=== PATIENT | female | born 1980 | race Caucasian/White ===

== ENCOUNTER 2017-11-01 12:38 | Inpatient (IN) ==
--- NOTE | 2017-11-01 13:40 | ED ---
HPI General Chief complaint: Dental/Oral Stated complaint: Medical Time Seen by Provider: 11/01/17 13:32 History of Present Illness HPI narrative: Patient is a 37-year-old otherwise healthy female presents emergency department as a transfer accepted by Dr. Harrington of the [facility] service evaluation of a dental abscess. Patient initially presented to [facility], has 2 day history of facial swelling on the right side of her face. Has tracked inferiorly underneath the jaw. She was given clindamycin prior to transfer, she did have temperature of 101.2 and a heart rate of 130, test was negative, UA did show leukocyte esterase but with evidence of vaginal contamination. White blood cell count of 14.4 with 79.7% neutrophils. Lactic acid 1.2. Coagulation studies were unremarkable , chemistry showed a sugar of 127 otherwise fairly unremarkable. Patient complains of continued right sided facial pain. Related Data Home Medications Medication Instructions Recorded Confirmed No Known Home Medications 11/01/17 11/01/17 Allergies Allergy/AdvReac Type Severity Reaction Status Date / Time No Known Allergies Allergy Unverified 11/01/17 12:41 Review of Systems Except as stated in HPI: all other systems reviewed are negative PMFSH Medical History Medical History Chronic pain (Acute) Narcotic abuse (Acute) Patient denies medical problems (Acute) Tobacco abuse (Acute) Surgical History Surgical History No history of previous surgery (Acute) Family History Family History Other Family history of hypertension Social History Social History Substance History: Past History Second Hand Smoke Exposure: No Smoking Status: Current every day smoker Tobacco Type: Cigarettes Packs Per Day: 0.5 Cigarettes Per Day: 10.0 How Often Do You Have a Drink Containing Alcohol: Monthly or less Hx Recent Travel: No Recent Travel in [facility] within the Last 8 Weeks: No Recent Out of Country Travel within the Last 8 Weeks: No Immunization History Tetanus Immunization: Unsure Hx Influenza Vaccine This Season: No Exam Narrative Exam Narrative: GENERAL: Well-developed well-nourished, obvious right-sided facial swelling. SKIN: Focused skin assessment warm/dry. There is some right-sided facial swelling as well as facial cellulitis, patient has also a small area of redness on the right side of her neck. I think this is probably due to some resting her head on her hand. HEAD: Atraumatic. Normocephalic. EYES: Pupils equal and round. No scleral icterus. No injection or drainage. ENT: There is one finger trismus, the tongue is not protruding, no swelling on the floor of her mouth that I can appreciate. The culprit tooth cannot be identified. Facial swelling as above, there is some anterior neck tenderness and perhaps a very small amount of swelling. The patient's airway for now is intact, she is able to swallow albeit with some pain. She appears comfortable, no stridor peer NECK: Trachea midline. No JVD. CARDIOVASCULAR: Regular rate and rhythm. No murmur appreciated. RESPIRATORY: No accessory muscle use. Clear to auscultation. Breath sounds equal bilaterally. GASTROINTESTINAL: Abdomen soft, non-tender, nondistended. Hepatic and splenic margins not palpable. MUSCULOSKELETAL: No obvious deformities. No clubbing. No cyanosis. No edema. NEUROLOGICAL: Awake and alert. No obvious cranial nerve deficits. Motor grossly within normal limits. Normal speech. PSYCHIATRIC: Appropriate mood and affect; insight and judgment normal. Course Initial Documented Vital Signs Temperature 99.3 F 11/01/17 12:41 Pulse Rate 104 H 11/01/17 12:41 Respiratory Rate 15 11/01/17 12:41 Blood Pressure 136/88 11/01/17 12:41 Pulse Oximetry 99 11/01/17 12:41 Last Documented Vital Signs Temperature 99.3 F 11/01/17 12:41 Pulse Rate 104 H 11/01/17 12:41 Respiratory Rate 15 11/01/17 12:41 Blood Pressure 136/88 11/01/17 12:41 Pulse Oximetry 99 11/01/17 12:41 Medical Decision Making MDM Narrative Medical decision making narrative: Patient room to the emergency department, discussed with Dr. Harrington and likely for surgical intervention either late today or early tomorrow. He agrees with clindamycin for now. Patient received 600mg clindamycin IV, Pain medication, zofran and decadron prior to transfer per nurse who took report. We are trying to call and determine when the last dose and how much Decadron she received.. Have added type and screen. Will be admitted to hospital. Discussed with Dr. Ca for admission to intermediate care for closer monitoring. Received call from [facility], the patient received clindamycin 600 mg at 0715, 300 mg at 1150. Toradol 15 mg at 815, Zofran 4 mg at 07 15, 1.5 L normal saline, Decadron 10 mg at 1115. Differential Diagnosis Differential Diagnosis: Sepsis, cellulitis, dental abscess, early Darryl's angina. Discharge Plan Discharge Disposition Patient Disposition: 30 Still Patient Discharge Condition Condition: Fair Discharge Details Diagnosis: Dental abscess, Darryl's angina Physicians Team ED Provider: Ethan David Primary Care Provider: Primary Care Arleen Deras Attending Provider: Uday Ca Status ED Status: Admitted Patient
[2017-11-01] MEDS ORDERED: Ketorolac Inj 30 MG/ML (IVP) Vial IV.PUSH ONE (14:24)
[2017-11-01] MEDS ORDERED: Bisacodyl 10 MG Supp RECTAL PRN (14:34)
[2017-11-01] MEDS ORDERED: Acetaminophen 325 MG Tablet PO PRN ×2 (14:34→14:37)
[2017-11-01] MEDS ORDERED: Naloxone Inj 0.4 MG/ML Vial IV.PUSH PRN (14:37)
[2017-11-01] MEDS ORDERED: Morphine Sulfate Inj 2 MG/ML Vial IV.PUSH PRN (14:37)
[2017-11-01] MEDS ORDERED: Morphine Inj 4 MG/ML Vial IV.PUSH PRN (14:37)
--- NOTE | 2017-11-01 14:56 | P.HPIM ---
History of Present Illness Service: [facility] Primary Care Physician: No Primary Care Physician Chief Complaint: DENTAL ORAL PAIN ABSCESS History of Present Illness: Patient is a 37-year-old female who presented as a transfer from [facility] at the request of Dr. Harrington of oral maxillary facial service regarding a dental abscess and possible Darryl's angina. Patient was seen earlier today at [facility] with a 2 day history of facial swelling on the right side of her face. States that it has tracked inferiorly underneath the right jaw. She was given clindamycin prior to transfer. She also had a fever as high as 101.2 and a heart rate 130 had a test that was negative. Urinalysis showed leukocyte esterase but probable contamination. White blood cell count was noted to be 14.4 with 79.7% neutrophils at the other hospital her lactic acid was only 1.2 chemistry showed a blood sugar 127. Had the right-sided facial pain. Was given Decadron and clindamycin at the other hospital will continue Decadron and clindamycin and consult oral maxillofacial service - Diagnosis (1) Darryl's angina (2) Dental abscess (3) Tobacco abuse (4) Narcotic abuse Inpatient Certification: I certify that the inpatient services were ordered in accordance with Medicare regulations governing the order. This includes certification that hospital inpatient services are reasonable and necessary and in the case of services not specified as inpatient-only under 42 CFR 419.22(n), that they are appropriately provided as inpatient services in accordance to with the 2-midnight benchmark under 43 CFR 412.3(e) Estimated Total Length of Stay (Days): 3 Plans for Post Hospital Care: Not yet determined Review of Systems All other systems reviewed negative except as stated in HPI Ears, Nose, Mouth, and Throat: Reports facial pain, Reports other (Some trismus and difficulty opening her mouth) PMFSH - History History Provided By: Patient - Medical History Medical History: Medical History (Last Updated 11/01/17 @ 14:45 by Uday Ca DO) Chronic pain Narcotic abuse Patient denies medical problems Tobacco abuse - Surgical History Surgical History: Surgical History (Last Updated 11/01/17 @ 12:44 by Yolis Moody) No history of previous surgery - Family History Family History: Family History (Last Updated 11/01/17 @ 14:45 by Uday Ca DO) Other Family history of hypertension - Tobacco History Second Hand Smoke Exposure: No Tobacco Use In Past 30 Days: Yes Smoking Status: Current every day smoker Tobacco Type: Cigarettes Packs Per Day: 0.5 - Alcohol History How Often Do You Have a Drink Containing Alcohol: Monthly or less - Substance Use History Substance History: Past History - Substance Use Type Opiates Type: Currently on Suboxone or Subutex for chronic pain - Travel History History of Recent Travel: No Recent Travel in the [place] Within the Last 8 Weeks: No Recent Travel Out of the Country Within the Last 8 Weeks: No - Immunization History Tetanus Immunization: Unsure Hx Influenza Vaccine This Season: No Medications and Allergies Active Medications: Active Medications Acetaminophen (Tylenol) 650 mg PO Q4H PRN PRN Reason: Temp > 100.4 Acetaminophen (Tylenol) 650 mg PO Q6HR PRN PRN Reason: PAIN SCALE 1 TO 2 Hydrocodone Bitart/Acetaminophen (Brightwood 5/325) 1 tab PO Q4H PRN PRN Reason: PAIN SCALE 3 TO 5 Hydrocodone Bitart/Acetaminophen (Brightwood 7.5/325) 1 tab PO Q4H PRN PRN Reason: PAIN SCALE 6 TO 10 Al Hydroxide/Mg Hydroxide (Milk Of Magnesia Liq) 30 ml PO Q12H PRN PRN Reason: Mild Constipation Bisacodyl (Dulcolax Supp) 10 mg RECTAL DAILY PRN PRN Reason: SEVERE CONSITIPATION Dexamethasone Sodium Phosphate (Decadron Inj) 4 mg IV.PUSH Q6HR MT Sodium Chloride (Ns Inj) 1,000 mls @ 100 mls/hr IV.CONT .Q10H MT Clindamycin/Sodium Chloride (Cleocin 600 Mg/Ns Premix) 600 mg in 50 mls @ 100 mls/hr IV.SIG Q6H MT Lactulose (Lactulose Liq) 30 ml PO DAILY PRN PRN Reason: SEVERE CONSITIPATION Morphine Sulfate (Morphine Inj) 2 mg IV.PUSH Q3H PRN PRN Reason: PAIN 3-5; IF UABLE TO TAKE PO Morphine Sulfate (Morphine Inj) 4 mg IV.PUSH Q3H PRN PRN Reason: PAIN 6-10;IF UNABLE TO TAKE PO Naloxone HCl (Narcan Inj) 0.4 mg IV.PUSH UNSCH PRN PRN Reason: SEE LABEL COMMENTS Ondansetron HCl (Zofran Inj) 4 mg IV.PUSH Q6H PRN PRN Reason: NAUSEA OR VOMITING Senna/Docusate Sodium (Lindsey-Colace) 1 tab PO BID MT Sennosides (Senokot) 17.2 mg PO Q12H PRN PRN Reason: Moderate Constipation Temazepam (Restoril) 15 mg PO HS PRN PRN Reason: INSOMNIA Allergies Allergy/AdvReac Type Severity Reaction Status Date / Time No Known Allergies Allergy Unverified 11/01/17 12:41 Home Medications Medication Instructions Recorded Confirmed Type No Known Home Medications 11/01/17 11/01/17 History Exam Vital signs: Vital Signs 11/01/17 12:41 Temperature 99.3 F Pulse Rate 104 H Respiratory Rate 15 Blood Pressure 136/88 Pulse Oximetry 99 Intake & Output 10/31/17 11/01/17 11/01/17 18:59 06:59 18:59 Weight 52.163 kg Narrative: GENERAL: Awake alert and oriented 3 talkative and cooperative SKIN: Warm and dry. Right sided facial swelling as well as facial cellulitis, small area of redness on the right side of her neck possibly due to resting her head on her hand HEAD: Atraumatic. Normocephalic. EYES: Pupils equal and round. No scleral icterus. No injection or drainage. ENT: No nasal bleeding or discharge. Mucous membranes pink and moist. Right- sided facial swelling some trismus and difficulty opening her mouth more than 2 cm. There is no swelling on the floor of the mouth the culprit tooth in the back of her mouth on the right side is not visible to be swollen. She does as the facial swelling. There is some anterior neck tenderness and small amount of swelling has a good airway able to swallow appears comfortable no obvious stridor NECK: Trachea midline. No JVD. CARDIOVASCULAR: Regular rate and rhythm. RESPIRATORY: No accessory muscle use. Clear to auscultation. Breath sounds equal bilaterally. GASTROINTESTINAL: Abdomen soft, non-tender, nondistended. Hepatic and splenic margins not palpable. MUSCULOSKELETAL: Extremities without clubbing, cyanosis, or edema. No obvious deformities. NEUROLOGICAL: Awake and alert. No obvious cranial nerve deficits. Motor grossly within normal limits. Five out of 5 muscle strength in the arms and legs. Normal speech. PSYCHIATRIC: Appropriate mood and affect; insight and judgment normal. Caprini VTE Risk Assessment Caprini VTE Risk Assessment: No/Low Risk (score <= 1) Caprini Risk Assessment Model: Point Value = 1 Point Value = 2 Point Value = 3 Point Value = 5 Age 41-60 Minor surgery BMI > 25 kg/m2 Swollen legs Varicose veins or History of unexplained or recurrent spontaneous Oral contraceptives or hormone replacement Sepsis (< 1 month) Serious lung disease, including pneumonia (< 1 month) Abnormal pulmonary function Acute myocardial infarction Congestive heart failure (< 1 month) History of inflammatory bowel disease Medical patient at bed rest Age 61-74 Arthroscopic surgery Major open surgery (> 45 min) Laparoscopic surgery (> 45 min) Malignancy Confined to bed (> 72 hours) Immobilizing plaster cast Central venous access Age >= 75 History of VTE Family history of VTE Factor V Leiden Prothrombin 28318H Lupus anticoagulant Anticardiolipin antibodies Elevated serum homocysteine Heparin-induced thrombocytopenia Other congenital or acquired thrombophilia Stroke (< 1 month) Elective arthroplasty Hip, pelvis, or leg fracture Acute spinal cord injury (< 1 month) Prophylaxis Regimen: Total Risk Factor Score Risk Level Prophylaxis Regimen 0-1 Low Early ambulation 2 Moderate Order ONE of the following: *Sequential Compression Device (SCD) *Heparin 5000 units SQ BID 3-4 Higher Order ONE of the following medications: *Heparin 5000 units SQ TID *Enoxaparin/Lovenox 40 mg SQ daily (WT < 150 kg, CrCl > 30 mL/min) *Enoxaparin/Lovenox 30 mg SQ daily (WT < 150 kg, CrCl > 10-29 mL/min) *Enoxaparin/Lovenox 30 mg SQ BID (WT < 150 kg, CrCl > 30 mL/min) AND/OR *Sequential Compression Device (SCD) 5 or more Highest Order ONE of the following medications: *Heparin 5000 units SQ TID (Preferred with Epidurals) *Enoxaparin/Lovenox 40 mg SQ daily (WT < 150 kg, CrCl > 30 mL/min) *Enoxaparin/Lovenox 30 mg SQ daily (WT < 150 kg, CrCl > 10-29 mL/min) *Enoxaparin/Lovenox 30 mg SQ BID (WT < 150 kg, CrCl > 30 mL/min) AND *Sequential Compression Device (SCD) Assessment and Plan - Assessment (1) Darryl's angina Code(s): K12.2 - Cellulitis and abscess of mouth Status: Acute (2) Dental abscess Code(s): K04.7 - Periapical abscess without sinus Status: Acute (3) Tobacco abuse Code(s): Z72.0 - Tobacco use Status: Chronic (4) Narcotic abuse Code(s): F11.10 - Opioid abuse, uncomplicated Status: Chronic - Plan Darryl's angina/right facial cellulitis and dental abscess/cellulitis of the neck/mandibular abscess -We will continue on clindamycin 600 mg IV q. 6 -Continue on Decadron 4 mg IV q. 6 -Consult Dr. Harrington of oral maxillary facial surgery Leukocytosis -Continue on the clindamycin 600 mg IV every 6 -Continue on the Decadron 4 mg IV every 6 had a loading dose of 10 mg I believe that the other hospital -A.m. labs Continue on IV fluids Tobacco abuse will give a NicoDerm patch Has chronic pain on Subutex will continue on Brightwood and morphine as needed DVT prophylaxis continue on SCDs and DEREK hose GI prophylaxis with Pepcid We will keep her n.p.o. at this time Code Status: Full code Discussed Condition With: ER and patient Discharge Planning: Pending improvement clearance by Dr. Harrington of oral maxillofacial surgery
[2017-11-01] MEDS: Famotidine PF Inj 20 MG/2 ML Vial IV.PUSH SCH (15:32)
[2017-11-01] MEDS: Sod Chloride 0.9% Inj 1,000 ML IV.CONT SCH (15:33)
--- NOTE | 2017-11-01 17:04 | P.CON ---
History of Present Illness Service: Oral & Maxillofacial Surgery Consult date: 11/01/17 Requesting Physician: Uday Ca Reason for Consult: Facial swelling Primary Care Provider: No Primary Care Physician Chief Complaint: DENTAL ORAL PAIN ABSCESS History of Present Illness: Patient reports a 2 week history of facial swelling. She reports that she presented to [facility] this morning where she was given IV clindamycin and Decadron. She reports an improvement in the edema since this point. She reports primarily pain in the anterior neck. She reports odynophagia but is able to swallow her own secretions, denies any dyspnea. She does report reduced mouth opening. She reports that she has not had any solid food for the past 2 days but did have some fluids this morning. Review of Systems Constitutional: Reports fever(s), Reports malaise Eyes: Denies change in vision, Denies double vision Ears, Nose, Mouth, and Throat: Reports dental pain, Reports neck pain, Reports pain with swallowing Cardiovascular: Denies chest pain Respiratory: Denies shortness of breath, Denies wheezing Gastrointestinal: Denies abdominal pain PMFSH - History History Provided By: Patient - Medical History Medical History: Medical History (Last Updated 11/01/17 @ 14:45 by Uday Ca DO) Chronic pain Narcotic abuse Patient denies medical problems Tobacco abuse - Surgical History Surgical History: Surgical History (Last Updated 11/01/17 @ 12:44 by Yolis Moody) No history of previous surgery - Family History Family History: Family History (Last Updated 11/01/17 @ 14:45 by Uday Ca DO) Other Family history of hypertension - Tobacco History Second Hand Smoke Exposure: No Tobacco Use In Past 30 Days: Yes Smoking Status: Current every day smoker Tobacco Type: Cigarettes Packs Per Day: 0.5 - Alcohol History How Often Do You Have a Drink Containing Alcohol: Monthly or less - Substance Use History Substance History: Past History - Substance Use Type Opiates Type: Currently on Suboxone or Subutex for chronic pain - Travel History History of Recent Travel: No Recent Travel in the [place] Within the Last 8 Weeks: No Recent Travel Out of the Country Within the Last 8 Weeks: No - Immunization History Tetanus Immunization: Unsure Hx Influenza Vaccine This Season: No Medications and Allergies Active Medications: Active Medications Acetaminophen (Tylenol) 650 mg PO Q4H PRN PRN Reason: Temp > 100.4 Acetaminophen (Tylenol) 650 mg PO Q6HR PRN PRN Reason: PAIN SCALE 1 TO 2 Hydrocodone Bitart/Acetaminophen ([place] 5/325) 1 tab PO Q4H PRN PRN Reason: PAIN SCALE 3 TO 5 Hydrocodone Bitart/Acetaminophen ([place] 7.5/325) 1 tab PO Q4H PRN PRN Reason: PAIN SCALE 6 TO 10 Al Hydroxide/Mg Hydroxide (Milk Of Magnesia Liq) 30 ml PO Q12H PRN PRN Reason: Mild Constipation Bisacodyl (Dulcolax Supp) 10 mg RECTAL DAILY PRN PRN Reason: SEVERE CONSITIPATION Dexamethasone Sodium Phosphate (Decadron Inj) 4 mg IV.PUSH Q6HR [facility] Famotidine (Pepcid Pf Inj) 20 mg IV.PUSH Q12H [facility] Last Admin: 11/01/17 15:32 Dose: 20 mg Sodium Chloride (Ns Inj) 1,000 mls @ 100 mls/hr IV.CONT .Q10H [facility] Last Admin: 11/01/17 15:33 Dose: 100 mls/hr Clindamycin/Sodium Chloride (Cleocin 600 Mg/Ns Premix) 600 mg in 50 mls @ 100 mls/hr IV.SIG Q6H [facility] Lactobacillus Acidophilus (Lactinex) 1 tab PO TID [facility] Lactulose (Lactulose Liq) 30 ml PO DAILY PRN PRN Reason: SEVERE CONSITIPATION Morphine Sulfate (Morphine Inj) 2 mg IV.PUSH Q3H PRN PRN Reason: PAIN 3-5; IF UABLE TO TAKE PO Morphine Sulfate (Morphine Inj) 4 mg IV.PUSH Q3H PRN PRN Reason: PAIN 6-10;IF UNABLE TO TAKE PO Naloxone HCl (Narcan Inj) 0.4 mg IV.PUSH UNSCH PRN PRN Reason: SEE LABEL COMMENTS Nicotine (Habitrol 14 Mg Patch.24 Hr) 1 patch T-DERMAL DAILY [facility] Last Admin: 11/01/17 15:32 Dose: 1 patch Ondansetron HCl (Zofran Inj) 4 mg IV.PUSH Q6H PRN PRN Reason: NAUSEA OR VOMITING Patch Removal (Remove Old Patch) 1 each T-DERMAL DAILY [facility] Senna/Docusate Sodium (Lindsey-Colace) 1 tab PO BID [facility] Sennosides (Senokot) 17.2 mg PO Q12H PRN PRN Reason: Moderate Constipation Temazepam (Restoril) 15 mg PO HS PRN PRN Reason: INSOMNIA Allergies Allergy/AdvReac Type Severity Reaction Status Date / Time No Known Allergies Allergy Unverified 11/01/17 12:41 Home Medications Medication Instructions Recorded Confirmed Type Subutex 8 mg PO DAILY 11/01/17 History Physical Exam Vital signs: Vital Signs 11/01/17 12:41 11/01/17 15:29 11/01/17 16:08 Temperature 99.3 F 98.8 F Pulse Rate 104 H 90 Respiratory Rate 15 16 16 Blood Pressure 136/88 130/80 Pulse Oximetry 99 99 Intake & Output 10/31/17 11/01/17 11/01/17 18:59 06:59 18:59 Weight 52.163 kg Narrative: General: Well-developed, comfortable resting in bed, in no apparent distress. Neurological: Alert and oriented to person, place, and time. HEENT: Head/Face: Mild right sided facial edema lateral to the mandible and in the right anterior neck, no overlying erythema, tender to palpation from the angle of the right mandible to the submental region. PAM 30 mm. Oral Cavity/Oropharynx: Mucosa pink and well hydrated. Poor oral hygiene. #30 and #31 grossly decayed, #30 is fractured mesiodositally with increased sensitivity to percussion and palpation. Floor of mouth soft, slighly raised on right side. Uvula was not visualized. Tongue ring present. Neck: Tender to palpation over the right anterior neck. Scar present in the right anterior neck. Trachea midline. Cardiovascular: Regular rate. Pulmonary: Normal work of breathing. Abdomen: Soft, non-tender, non-distended. Extremities: Warm, well perfused. - Additional findings Additional findings: CT Maxillofacial displays a rim-enhancing fluid collection along the lingual aspect of the right mandible and in proximity to tooth #30. The collection courses anteriorly and medially to the inferior border of the mandible. No tracheal deviation. Assessment and Plan - Assessment (1) Dental abscess Code(s): K04.7 - Periapical abscess without sinus Status: Acute - Plan - Patient will require incision and drainage of a right facial abscess from both intraoral and extraoral approaches and extraction of tooth #30 under general anesthesia. Patient may benefit from continued antibiotic therapy until then. Risks and benefits discussed with the patient including pain, swelling, continued infection, nerve injury. - OK for liquid diet now, NPO at midnight - Recommend continuing clindamycin 600mg q6h - Recommend Decadron 8mg q8h x 3 doses - Pain medication per primary team - Daily CBC, C-reactive protein Thank you for this consultation. Please call with any questions or concerns, Lm Torres DDS,
[2017-11-01] MEDS ORDERED: Temazepam 15 MG Capsule PO PRN (21:00)
[2017-11-01] MEDS: Senna/Docusate Sodium 8.6/50 MG Tablet PO SCH (21:51)
[2017-11-01] MEDS: Lactobacillus Acidophilus/L. Spores Tablet PO SCH (22:25)
[2017-11-01] MEDS: Clindamycin 600 mg/NS Premix 600 MG/50 ML PIGGYBACK IV.SIG SCH (22:28)
[2017-11-02] MEDS: Clindamycin 600 mg/NS Premix 600 MG/50 ML PIGGYBACK IV.SIG SCH ×5 (01:32→23:39)
[2017-11-02 04:56] LABS: Amphetamine Urine With Conf Neg (Neg); Barbiturate Urine With Conf Neg (Neg); Benzodiazepine Urine With Conf Neg (Neg)
[2017-11-02] MEDS ORDERED: Metoprolol Tartrate 25 MG Tablet PO SCH (05:00)
[2017-11-02] MEDS ORDERED: Chlorhexidine Gluconate 2% 1 Pack (2 Cloths) TOPICAL SCH (05:00)
[2017-11-02] MEDS ORDERED: Sodium Chlor 0.9% Inj 500 ML IV.SIG SCH (05:00)
[2017-11-02] MEDS: Famotidine PF Inj 20 MG/2 ML Vial IV.PUSH SCH ×2 (05:44→15:15)
[2017-11-02] MEDS: Sod Chloride 0.9% Inj 1,000 ML IV.CONT SCH ×3 (05:45→21:40)
--- NOTE | 2017-11-02 07:30 | P.PN ---
Subjective Interval history: Patient reports improvement in edema this AM, localized primarily to the submental region. She notes that her mouth opening has improved as well. She is having difficulty removing her tongue ring in anticipation of surgery today or tomorrow. Physical Exam Vital signs: Vital Signs 11/01/17 12:41 11/01/17 15:29 11/01/17 16:00 Temperature 99.3 F 98.0 F Pulse Rate 104 H 82 Respiratory Rate 15 16 16 Blood Pressure 136/88 119/72 Pulse Oximetry 99 95 11/01/17 16:08 11/01/17 20:00 11/02/17 00:00 Temperature 98.8 F 98.3 F 98.0 F Pulse Rate 90 99 H 94 H Respiratory Rate 16 18 18 Blood Pressure 130/80 134/88 116/82 Pulse Oximetry 99 98 99 11/02/17 04:00 Temperature 97.9 F Pulse Rate 68 Respiratory Rate 18 Blood Pressure 115/77 Pulse Oximetry 98 Intake & Output 11/01/17 11/02/17 11/02/17 18:59 06:59 18:59 Intake Total 1322 / 1322 Balance 1322 / 1322 Weight 52.163 kg 53.5 kg Intake: IV 1100 / 1100 NS Inj 1,000 ML @ 100 mls/hr IV 1000 / 1000 .CONT .Q10H MT Rx#:[id number] Cleocin 600 mg/NS Premix 600 mg 100 / 100 In 50 ml @ 100 mls/hr IV.SIG Q6H MT Rx#:[id number] Oral 222 / 222 Other: # Voids 2 Narrative: General: Well-developed, comfortable resting in bed, in no apparent distress. Neurological: Alert and oriented to person, place, and time. HEENT: Head/Face: Mild right sided facial edema lateral to the mandible ,improved from yesterday. Induration of the anterior neck in the submental region, no overlying erythema, tender to palpation primarily in the submental region. PAM improved to 45 mm. Oral Cavity/Oropharynx: Mucosa pink and well hydrated. Poor oral hygiene. #30 and #31 grossly decayed, #30 is fractured mesiodistally with increased sensitivity to percussion and palpation. Floor of mouth soft, slighly raised on right side. Uvula is midline. Tongue ring present. Neck: Tender to palpation over the anterior neck in midline. Scar present in the right anterior neck. Trachea midline. Cardiovascular: Regular rate. Pulmonary: Normal work of breathing. Abdomen: Soft, non-tender, non-distended. Extremities: Warm, well perfused. Results - Labs Laboratory Results - last 24 hr 11/01/17 11/02/17 14:00 04:30 Urine Opiates Screen Neg Ur Barbiturates Screen Neg Ur Amphetamine Screen Neg U Benzodiazepines Scrn Neg Urine Cocaine Screen Neg U Cannabinoids Screen Neg Blood Type O Positive Antibody Screen Negative Assessment and Plan - Assessment (1) Dental abscess Code(s): K04.7 - Periapical abscess without sinus Status: Acute - Plan - Patient will require incision and drainage of a right facial abscess from both intraoral and extraoral approaches and extraction of tooth #30 under general anesthesia. Patient may benefit from continued antibiotic therapy until then. Risks and benefits discussed with the patient including pain, swelling, continued infection, nerve injury. Verbal and written consent obtained. - NPO today in anticipation of OR if OR time available - Recommend continuing clindamycin 600mg q6h - Pain medication per primary team. Patient acknowledged history of substance abuse and current suboxone use. - Daily CBC, C-reactive protein Thank you for this consultation. Please call with any questions or concerns, [phone] Lm Torres DDS, MD
[2017-11-02 08:04] LABS: INR 1.1 Ratio; Prothrombin Time 10.8 sec (9.8-11.6)
[2017-11-02 08:06] LABS: Hematocrit 40.7 % (35.0-46.0); Hemoglobin 14.1 gm/dL (11.6-15.3); Lymph # (Auto) 0.4 th/mm3 (1.0-4.8); Lymph % (Auto) 3.6 % (9.0-44.0); Mean Corpuscular HGB Conc 34.5 % (32.0-36.0); Mean Corpuscular Hemoglobin 33.3 pg (27.0-34.0); Mean Corpuscular Volume 96.4 fL (80.0-100.0); Mean Platelet Volume 9.7 fL (7.0-11.0); Mono # (Auto) 0.7 th/mm3 (0.0-0.9); Neut # (Auto) 10.1 th/mm3 (1.8-7.7); Neut % (Auto) 90.4 % (16.0-70.0); Platelet Count 169 th/mm3 (150-450); Red Blood Count 4.23 mil/mm3 (4.00-5.30); Red Cell Distribution Width 12.5 % (11.6-17.2); White Blood Count 11.1 th/mm3 (4.0-11.0)
[2017-11-02 08:30] LABS: Albumin 3.7 g/dL (3.4-5.0); Anion Gap 14 meq/L (5-15); Aspartate Aminotransferase 38 U/L (15-37); Blood Urea Nitrogen 5 mg/dL (7-18); Calcium 9.4 mg/dL (8.5-10.1); Carbon Dioxide 17.7 meq/L (21.0-32.0); Chloride 102 meq/L (98-107); Glomerular Filtration Rate Greater Than 89 mL/min (>89); Glucose,Random 133 mg/dL (74-106); Magnesium 1.8 mg/dL (1.5-2.5); Potassium 3.9 meq/L (3.5-5.1); Sodium 134 meq/L (136-145)
[2017-11-02 08:40] LABS: Alanine Aminotransferase 34 U/L (10-53); Alkaline Phosphatase 96 U/L (45-117); Free T4 (Free Thyroxine) 1.03 ng/dL (0.76-1.46); Phosphorus 2.9 mg/dL (2.5-4.9); Thyroid Stimulating Hormone 0.491 uIU/mL (0.358-3.740); Total Protein 8.3 g/dL (6.4-8.2)
[2017-11-02] MEDS: Senna/Docusate Sodium 8.6/50 MG Tablet PO SCH ×2 (10:30→21:39)
[2017-11-02] MEDS: Lactobacillus Acidophilus/L. Spores Tablet PO SCH ×3 (10:30→19:16)
--- NOTE | 2017-11-02 14:05 | P.PN ---
Subjective Interval history: per patient much improved in pain and mouth opening speech clear Physical Exam Vital signs: Vital Signs 11/01/17 15:29 11/01/17 16:00 11/01/17 16:08 Temperature 98.0 F 98.8 F Pulse Rate 82 90 Respiratory Rate 16 16 16 Blood Pressure 119/72 130/80 Pulse Oximetry 95 99 11/01/17 20:00 11/02/17 00:00 11/02/17 04:00 Temperature 98.3 F 98.0 F 97.9 F Pulse Rate 99 H 94 H 68 Respiratory Rate 18 18 18 Blood Pressure 134/88 116/82 115/77 Pulse Oximetry 98 99 98 11/02/17 08:00 11/02/17 08:45 Temperature 97.2 F L Pulse Rate 81 Respiratory Rate 16 Blood Pressure 162/93 H Pulse Oximetry 100 98 Intake & Output 11/01/17 11/02/17 11/02/17 18:59 06:59 18:59 Intake Total 1372 / 1372 Balance 1372 / 1372 Weight 52.163 kg 53.5 kg Intake: IV 1150 / 1150 NS Inj 1,000 ML @ 100 mls/hr IV 1000 / 1000 .CONT .Q10H MT Rx#:[id number] Cleocin 600 mg/NS Premix 600 mg 150 / 150 In 50 ml @ 100 mls/hr IV.SIG Q6H MT Rx#:[id number] Oral 222 / 222 Other: # Voids 2 Narrative: Well-developed, comfortable resting in bed, in no apparent distress. Alert and oriented to person, place, and time. Head/Face: Mild right sided facial edema lateral to the mandible ,improved from yesterday. Induration of the anterior neck in the submental region, no overlying erythema, tender to palpation primarily in the submental region. Oral Cavity/Oropharynx: Mucosa pink and well hydrated. Poor oral hygiene. #30 and #31 grossly decayed, #30 is fractured mesiodistally with increased sensitivity to percussion and palpation. Floor of mouth soft, slighly raised on right side. Uvula is midline. Tongue ring present. Neck: Tender to palpation over the anterior neck in midline. Scar present in the right anterior neck. Trachea midline. no nuchal rigidity lungs-clear regular rhythm Abdomen: Soft, non-tender, non-distended. Extremities: Warm, well perfused. Results - Labs CBC & Chem 7: 11/02/17 07:20 11/02/17 07:20 Laboratory Results - last 24 hr 11/01/17 11/02/17 11/02/17 14:00 04:30 07:20 WBC RBC Hgb Hct MCV MCH MCHC RDW Plt Count MPV Neut % (Auto) Lymph % (Auto) [place] % (Auto) Eos % (Auto) Baso % (Auto) Neut # (Auto) Lymph # (Auto) [place] # (Auto) Eos # (Auto) Baso # (Auto) WBC Differential Differential Comment PT INR Sodium 134 L Potassium 3.9 Chloride 102 Carbon Dioxide 17.7 L Anion Gap 14 BUN 5 L Creatinine 0.47 L Estimated GFR Greater than 89 Random Glucose 133 H Calcium 9.4 Phosphorus 2.9 Magnesium 1.8 Total Bilirubin 0.9 AST 38 H ALT 34 Alkaline Phosphatase 96 C-Reactive Protein 12.90 H Total Protein 8.3 H Albumin 3.7 TSH 0.491 Free T4 1.03 Urine Opiates Screen Neg Ur Barbiturates Screen Neg Ur Amphetamine Screen Neg U Benzodiazepines Scrn Neg Urine Cocaine Screen Neg U Cannabinoids Screen Neg Blood Type O Positive Antibody Screen Negative 11/02/17 11/02/17 07:20 07:20 WBC 11.1 H RBC 4.23 Hgb 14.1 Hct 40.7 MCV 96.4 MCH 33.3 MCHC 34.5 RDW 12.5 Plt Count 169 MPV 9.7 Neut % (Auto) 90.4 H Lymph % (Auto) 3.6 L [place] % (Auto) 6.0 Eos % (Auto) 0.0 Baso % (Auto) 0.0 Neut # (Auto) 10.1 H Lymph # (Auto) 0.4 L [place] # (Auto) 0.7 Eos # (Auto) 0.0 Baso # (Auto) 0.0 WBC Differential . Differential Comment Auto diff final PT 10.8 INR 1.1 Sodium Potassium Chloride Carbon Dioxide Anion Gap BUN Creatinine Estimated GFR Random Glucose Calcium Phosphorus Magnesium Total Bilirubin AST ALT Alkaline Phosphatase C-Reactive Protein Total Protein Albumin TSH Free T4 Urine Opiates Screen Ur Barbiturates Screen Ur Amphetamine Screen U Benzodiazepines Scrn Urine Cocaine Screen U Cannabinoids Screen Blood Type Antibody Screen Assessment and Plan - Assessment (1) Darryl's angina Code(s): K12.2 - Cellulitis and abscess of mouth Status: Acute (2) Dental abscess Code(s): K04.7 - Periapical abscess without sinus Status: Acute (3) Tobacco abuse Code(s): Z72.0 - Tobacco use Status: Chronic (4) Narcotic abuse Code(s): F11.10 - Opioid abuse, uncomplicated Status: Chronic - Plan 37 years old female facial cellulitis and dental abscess/cellulitis of the neck/mandibular abscess -We will continue on clindamycin 600 mg IV q. 6 -Continue on Decadron 4 mg IV q. 6 -OMFS ff- taking her to OR today Leukocytosis -Continue on the clindamycin 600 mg IV every 6 -Continue on the Decadron 4 mg IV every 6 had a loading dose of 10 mg I believe that the other hospital -A.m. labs Continue on IV fluids Tobacco abuse will give a NicoDerm patch Has chronic pain on Subutex will continue on [place] and morphine as needed DVT prophylaxis continue on SCDs and DEREK hose GI prophylaxis with Pepcid We will keep her n.p.o. at this time
[2017-11-02 16:34] LABS: Hemoglobin A1c 5.3 % (4.3-6.0)
[2017-11-02] MEDS: Buprenorphine/Naloxone 8/2 MG Sublingual Tablet SL SCH (19:16)
[2017-11-03] MEDS: Famotidine PF Inj 20 MG/2 ML Vial IV.PUSH SCH ×2 (04:18→16:14)
[2017-11-03] MEDS: Clindamycin 600 mg/NS Premix 600 MG/50 ML PIGGYBACK IV.SIG SCH ×3 (06:12→18:01)
[2017-11-03] MEDS: Sod Chloride 0.9% Inj 1,000 ML IV.CONT SCH ×2 (06:48→17:15)
--- NOTE | 2017-11-03 11:09 | P.PN ---
Subjective Interval history: no fever or chills up andambualting around oral pain better- slight on left side of the mouth no diarrhea + small BM yesterday Physical Exam Vital signs: Vital Signs 11/02/17 16:00 11/02/17 20:00 11/03/17 00:00 Temperature 98.0 F 98.1 F 97.8 F Pulse Rate 98 H 93 H 96 H Respiratory Rate 16 16 16 Blood Pressure 163/86 H 142/98 H 130/89 Pulse Oximetry 98 99 99 11/03/17 08:00 Temperature 97.5 F L Pulse Rate 78 Respiratory Rate 17 Blood Pressure 116/75 Pulse Oximetry 99 Intake & Output 11/02/17 11/03/17 11/03/17 18:59 06:59 18:59 Intake Total 1770 / 1770 1390 / 1390 Balance 1770 / 1770 1390 / 1390 Weight 57.7 kg Intake: IV 1050 / 1050 1150 / 1150 NS Inj 1,000 ML @ 100 mls/hr IV 1000 / 1000 1000 / 1000 .CONT .Q10H MT Rx#:[id number] Cleocin 600 mg/NS Premix 600 mg 50 / 50 150 / 150 In 50 ml @ 100 mls/hr IV.SIG Q6H MT Rx#:[id number] Oral 720 / 720 240 / 240 Other: # Voids 5 2 Date of Last Bowel Movement 11/02/17 Narrative: in no apparent distress. Alert and oriented to person, place, and time. Head/Face: Mild right sided facial edema lateral to the mandible - almost resolved Induration of the anterior neck in the submental region- improved- softer today, no erythema, nontender, Oral Cavity/Oropharynx: Mucosa pink and well hydrated. Poor oral hygiene. #30 and #31 grossly decayed, #30 is fractured mesiodistally more oral opening tongue ring in place no nuchal rigidity lungs-clear regular rhythm Abdomen: Soft, non-tender, non-distended. gait steady no LE edema Results - Labs CBC & Chem 7: 11/02/17 07:20 11/02/17 07:20 Laboratory Results - last 24 hr 11/02/17 07:20 Hemoglobin A1c 5.3 Assessment and Plan - Assessment (1) Darryl's angina Code(s): K12.2 - Cellulitis and abscess of mouth Status: Acute (2) Dental abscess Code(s): K04.7 - Periapical abscess without sinus Status: Acute (3) Tobacco abuse Code(s): Z72.0 - Tobacco use Status: Chronic (4) Narcotic abuse Code(s): F11.10 - Opioid abuse, uncomplicated Status: Chronic - Plan 37 years old female facial cellulitis and dental abscess/cellulitis of the neck/mandibular abscess -We will continue on clindamycin 600 mg IV q. 6 -Continue on Decadron 4 mg IV q. 6 -OMFS ff- taking her to OR today Leukocytosis -Continue on the clindamycin 600 mg IV every 6 -Continue on the Decadron 4 mg IV every 6 had a loading dose of 10 mg I believe that the other hospital -A.m. labs Continue on IV fluids Tobacco abuse will give a NicoDerm patch Has chronic pain on Subutex will continue on [place] and morphine as needed DVT prophylaxis continue on SCDs and DEREK hose GI prophylaxis with Pepcid We will keep her n.p.o. at this time
[2017-11-03] MEDS: Lactobacillus Acidophilus/L. Spores Tablet PO SCH ×3 (11:43→17:16)
[2017-11-03] MEDS: Senna/Docusate Sodium 8.6/50 MG Tablet PO SCH ×2 (11:43→20:21)
[2017-11-03] MEDS: Buprenorphine/Naloxone 8/2 MG Sublingual Tablet SL SCH (11:44)
[2017-11-03] MEDS ORDERED: Lidocaine PF 1% Inj 5 ML Syringe INFILTRATN ONE (12:00)
[2017-11-03] MEDS ORDERED: Lidocaine 2%/Epinephrine 1:200,000 PF Inj 20 ML Vial ONE (12:35)
[2017-11-03] MEDS ORDERED: Bupivacaine/Epinephrine Inj 0.25% 50 ML Vial ONE (12:35)
[2017-11-03] MEDS ORDERED: fentaNYL Citrate Inj 100 MCG/2 ML Ampul ONE (13:38)
[2017-11-03] MEDS ORDERED: *Meperidine Inj 25 MG/ML Vial PERIprocedural Use ONLY ONE (13:38)
--- NOTE | 2017-11-03 13:40 | MP ---
cc: David Patel DDS DATE OF OPERATION: 11/03/2017 DATE OF PROCEDURE: 11/03/2017 PREOPERATIVE DIAGNOSIS: Submental and submandibular right space infections of mandible secondary to odontogenic source. POSTOPERATIVE DIAGNOSIS: Submental and submandibular right space infections of mandible secondary to odontogenic source. PROCEDURE PERFORMED: Incision and drainage of submandibular and submental spaces, extraction of teeth #30 and 32. SURGEON: David Patel DDS FLUIDS: 500 mL crystalloid. SPECIMENS: None. COMPLICATIONS: None. JUSTIFICATION: Ms. Alonso is a young lady who presented to [facility] with swelling of the floor of the mouth and right neck, extending down. CT showed an infection involving the submandibular and submental space, extending lingually down into the lateral pharyngeal space as well. She was transferred over, started on IV antibiotics and steroids, where she started to improve and planned to take to the OR today for removal of offending teeth and final drainage of abscess. DESCRIPTION OF PROCEDURE: On 11/03/2017, she presented to the holding area, brought to OR #7, where she was intubated but anesthesia, prepped and draped in sterile fashion. Local anesthesia given with 2% Xylocaine with epinephrine, total of 6 mL. Teeth #30 and 32 were taken out with the use of the periosteal elevator and to reflect the flap and no drills were necessary. Straight elevator was used to reflect the teeth up. Dissection around the lingual space noted about 5 mL of pus. Irrigated into the floor of the mouth and into the lateral pharyngeal spaces and down off on the buccal space, which was greatly improved and was soft. Floor of the mouth was soft today and she has been greatly improved on her last 2 days of IV antibiotics. Both teeth were removed, irrigated with copious amounts of Peridex and saline and then closed with 3-0 chromic gut. She tolerated the procedure well, extubated, taken to recovery with vital signs stable. SAULO Garzon/BETTY , 01:24 PM , 01:31 PM
[2017-11-03] MEDS ORDERED: Morphine Sulfate Inj 2 MG/ML Vial IV.PUSH PRN (20:59)
[2017-11-03] MEDS ORDERED: Dextrose 5%/NaCl 0.45% Inj 1,000 ML IV.SIG SCH (21:00)
[2017-11-03] MEDS: MethylPREDNISolone Sod Succinate Inj 125 MG/2 ML Vial IV.PUSH SCH (21:30)
[2017-11-04] MEDS: Clindamycin 600 mg/NS Premix 600 MG/50 ML PIGGYBACK IV.SIG SCH ×3 (00:29→11:52)
[2017-11-04] MEDS: Sod Chloride 0.9% Inj 1,000 ML IV.CONT SCH (02:54)
[2017-11-04] MEDS: Famotidine PF Inj 20 MG/2 ML Vial IV.PUSH SCH (04:16)
[2017-11-04] MEDS: MethylPREDNISolone Sod Succinate Inj 125 MG/2 ML Vial IV.PUSH SCH (06:27)
[2017-11-04] MEDS: Buprenorphine/Naloxone 8/2 MG Sublingual Tablet SL SCH (09:32)
[2017-11-04] MEDS: Lactobacillus Acidophilus/L. Spores Tablet PO SCH (09:32)
[2017-11-04] MEDS: Senna/Docusate Sodium 8.6/50 MG Tablet PO SCH (09:32)
--- NOTE | 2017-11-04 12:20 | P.PN ---
Subjective Interval history: feeling better afebrile Physical Exam Vital signs: Vital Signs 11/03/17 13:30 11/03/17 13:45 11/03/17 14:00 Temperature 97.7 F Pulse Rate 107 H 89 86 Respiratory Rate 13 15 15 Blood Pressure 149/99 H 130/78 129/76 Pulse Oximetry 96 100 95 11/03/17 14:10 11/03/17 18:00 11/03/17 20:00 Temperature 97.7 F 97.7 F 97.8 F Pulse Rate 88 101 H 89 Respiratory Rate 16 17 16 Blood Pressure 127/75 127/78 131/87 Pulse Oximetry 95 100 98 11/04/17 00:00 11/04/17 04:00 Temperature 98.2 F 98.0 F Pulse Rate 106 H 87 Respiratory Rate 16 18 Blood Pressure 127/78 129/75 Pulse Oximetry 97 96 Intake & Output 11/03/17 11/04/17 11/04/17 18:59 06:59 18:59 Intake Total 2290 / 2290 530 / 530 50 / 50 Output Total 105 / 105 Balance 2185 / 2185 530 / 530 50 / 50 Weight 57.5 kg Intake: IV 1100 / 1100 50 / 50 50 / 50 NS Inj 1,000 ML @ 100 mls/hr IV 1000 / 1000 .CONT .Q10H MT Rx#:[id number] Cleocin 600 mg/NS Premix 600 mg 100 / 100 50 / 50 50 / 50 In 50 ml @ 100 mls/hr IV.SIG Q6H MT Rx#:[id number] Oral 690 / 690 480 / 480 Anesthesia Amount 500 / 500 Output: Urine 100 / 100 Estimated Blood Loss 5 / 5 Other: # Voids 2 4 # Bowel Movements 0 Narrative: Well-developed, comfortable resting in bed, in no apparent distress. Alert and oriented to person, place, and time. Head/Face: Mild right sided facial edema lateral to the mandible ,- resolved Induration of the anterior neck in the submental region, no overlying erythema- improved Oral Cavity/Oropharynx: Mucosa pink and well hydrated. S/P teeth extraction - more mouth Uvula is midline. Tongue ring present. Neck: Tender to palpation over the anterior neck in midline. Scar present in the right anterior neck. Trachea midline. no nuchal rigidity lungs-clear regular rhythm Abdomen: Soft, non-tender, non-distended. Extremities: Warm, well perfused. Results - Labs CBC & Chem 7: 11/02/17 07:20 11/02/17 07:20 - Procedures 11/03 Incision and drainage of submandibular and submental spaces, extraction of teeth #30 and 32. Assessment and Plan - Assessment (1) Darryl's angina Code(s): K12.2 - Cellulitis and abscess of mouth Status: Acute (2) Dental abscess Code(s): K04.7 - Periapical abscess without sinus Status: Acute (3) Tobacco abuse Code(s): Z72.0 - Tobacco use Status: Chronic (4) Narcotic abuse Code(s): F11.10 - Opioid abuse, uncomplicated Status: Chronic - Plan 37 years old female facial cellulitis and dental abscess/cellulitis of the neck/mandibular abscess -We will continue on clindamycin 600 mg IV q. 6 -change to po clindamycin -OP ff up with Dr. Patel Leukocytosis- improved -Continue on the clindamycin - change to po Tobacco abuse will give a NicoDerm patch Has chronic pain on Subutex DC [place] DVT prophylaxis continue on SCDs and DEREK hose GI prophylaxis with Pepcid DC with her- ff up with her painmanagement MD on subutrex - confirmed with her [facility] pharmacy- got subutrex there - NSAids for prn pain - Motrin 400 mg po q 8 prn for pain - take on a full stomach
[2017-11-04] MEDS ORDERED: Ibuprofen 400 MG Tablet PO PRN (12:37)
--- NOTE | 2017-11-23 08:29 | P.DS ---
Date of admission: 11/01/17 14:12 Primary care physician: No Primary Care Physician Brief History from admission: Patient is a 37-year-old female who presented as a transfer from [facility] at the request of Dr. Harrington of oral maxillary facial service regarding a dental abscess and possible Darryl's angina. Patient was seen earlier today at [facility] with a 2 day history of facial swelling on the right side of her face. States that it has tracked inferiorly underneath the right jaw. She was given clindamycin prior to transfer. She also had a fever as high as 101.2 and a heart rate 130 had a test that was negative. Urinalysis showed leukocyte esterase but probable contamination. White blood cell count was noted to be 14.4 with 79.7% neutrophils at the other hospital her lactic acid was only 1.2 chemistry showed a blood sugar 127. Had the right-sided facial pain. Was given Decadron and clindamycin at the other hospital will continue Decadron and clindamycin and consult oral maxillofacial service DS: Diagnosis - Discharge Diagnosis (1) Darryl's angina Status: Acute (2) Dental abscess Status: Acute (3) Tobacco abuse Status: Chronic (4) Narcotic abuse Status: Chronic DS: Summary Hospital Course: 37 years old female facial cellulitis and dental abscess/cellulitis of the neck/mandibular abscess- clinically improved -change to po clindamycin -OP ff up with Dr. Patel Leukocytosis- improved -Continue on the clindamycin - change to po Tobacco abuse - counselled History of chronic pain on Subutex DC [place] DVT prophylaxis continue on SCDs and DEREK hose GI prophylaxis with Pepcid DC with her- ff up with her painmanagement MD on subutrex - confirmed with her [facility] pharmacy- got subutrex there - NSAids for prn pain - Motrin 400 mg po q 8 prn for pain - take on a full stomach - Time Spent with Patient Total time spent providing and/or coordinating discharge services: Less than 30 minutes - Quality: VTE Deep Vein Thrombosis/Pulmonary Embolism Present on Admission: No Results Procedures completed during hospitalization: 11/03 Incision and drainage of submandibular and submental spaces, extraction of teeth #30 and 32. 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
== END 2017-11-04 15:47 | disposition home or self-care (01) ==
LOC: NEPD 12:38 → NEDA 14:12 → N04 16:25
PROVIDERS: ADMIT Internal Medicine; ATTEND Internal Medicine
PROC: IDMOUTH (2017-11-03 12:59)